=== PATIENT | male | born 1950 | race Caucasian/White ===

== ENCOUNTER 2016-12-21 11:20 | Observation (INO) | payer MEDICARE, OTHER ==
[2016-12-21] VITALS (14 sets, daily range): BP systolic 103–135; BP diastolic 67–87; PULSE 65–150; RESP 18; TEMP 97.1–98.4; O2SAT 96–99
[~2016-12-21] VITALS: Ht 182.9 cm; Wt 120.0 kg
[2016-12-21] MEDS ORDERED: SODIUM CHLORIDE 0.9% FLUSH 10 ML FLUSH IVF PRN (11:30)
[2016-12-21] MEDS ORDERED: DILTIAZEM HCL 25 MG/5 ML VIAL IV ONE (11:30)
--- NOTE | 2016-12-21 11:49 | RADRPT ---
EXAM DATE/TIME: 12/21/2016 11:39 [place] COMPARISON: No previous studies available for comparison. INDICATIONS : Palpitations MEDICAL HISTORY : None. SURGICAL HISTORY : None. ENCOUNTER: Initial ACUITY: 1 day PAIN SCORE: 0/10 LOCATION: Bilateral chest FINDINGS: A single view of the chest demonstrates the lungs to be symmetrically aerated without evidence of mas s, infiltrate or effusion. The cardiomediastinal contours are unremarkable. Osseous structures are intact. CONCLUSION: No acute disease. Joaquim Landry MD on December 21, 2016 at 11:46 Board Certified Radiologist. This report was verified electronically.
[2016-12-21 11:51] LABS: AUTOMATED NEUTROPHIL # 3.6 TH/MM3 (1.8-7.7); BASOPHIL % 0.8 % (0.0-2.0); EOSINOPHIL # 0.2 TH/MM3 (0-0.4); EOSINOPHIL % 3.6 % (0.0-4.0); HEMATOCRIT 47.8 % (39.0-51.0); HEMO FLAGS DIFF FINAL; LYMPH % 22.7 % (9.0-44.0); LYMPHOCYTE # 1.3 TH/MM3 (1.0-4.8); MEAN CELL VOLUME 80.9 FL (80.0-100.0); MEAN CORPUSCULAR HEMOGLOBIN 26.9 PG (27.0-34.0); MEAN CORPUSCULAR HGB CONC 33.2 % (32.0-36.0); MONO % 9.8 % (0.0-8.0); NEUT % 63.1 % (16.0-70.0); PLATELET COUNT 246 TH/MM3 (150-450); RED BLOOD COUNT 5.91 MIL/MM3 (4.50-5.90); WHITE BLOOD COUNT 5.7 TH/MM3 (4.0-11.0)
[2016-12-21] MEDS ORDERED: DILTIAZEM INJ 125 MG in SODIUM CHLORIDE 0.9% INJ 100 ML IV SCH (12:00)
[2016-12-21 12:01] LABS: APTT (PATIENT) 28.7 SEC (24.3-30.1); PROTHROMBIN TIME - PATIENT 11.2 SEC (9.8-11.6)
[2016-12-21 12:08] LABS: ANION GAP 12 MEQ/L (5-15); AST (GOT) 23 U/L (15-37); BICARBONATE 26.6 MEQ/L (21.0-32.0); BLOOD UREA NITROGEN 17 MG/DL (7-18); CHLORIDE 94 MEQ/L (98-107); GLOMERULAR FILTRATION RATE 53 ML/MIN (>89); MAGNESIUM 1.7 MG/DL (1.5-2.5); POTASSIUM 3.8 MEQ/L (3.5-5.1); SODIUM (NA) 133 MEQ/L (136-145)
[2016-12-21 12:13] LABS: ALKALINE PHOSPHATASE 91 U/L (45-117); ALT (GPT) 12 U/L (12-78); TOTAL BILIRUBIN ADULT 0.3 MG/DL (0.2-1.0)
--- NOTE | 2016-12-21 12:26 | PD ---
HPI Chief Complaint: tachycardia Time Seen by Provider: 11:24 Travel History International Travel<30 days: No Contact w/Intl Traveler<30days: No Traveled to known affect area: No History of Present Illness HPI 66-year-old male presents with elevated heart rate when he went for a primary care check up this morning. He was asymptomatic when they noticed his heart rate was fast. He states he's never had this before. He states his last checkup about a month ago his heart rate was normal. 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 He denies taking any mftw-xby-zhrxtnc blood thinner medications. Quality is irregular. Severity is 150s. PFSH Past Medical History Medical History: Denies Significant Hx Diminished Hearing: No Tetanus Vaccination: Unknown ?: Not Past Surgical History Surgical History: No Previous Surgery Social History Alcohol Use: No Tobacco Use: No Substance Use: No Allergies-Medications (Allergen,Severity, Reaction): Coded Allergies: No Known Allergies (Unverified , 12/21/16) Reported Meds & Prescriptions Reported Meds & Active Scripts Active No Active Prescriptions or Reported Medications Review of Systems Except as stated in HPI: all other systems reviewed are Neg Physical Exam Narrative GENERAL: Well-nourished, well-developed patient. SKIN: Warm and dry. HEAD: Normocephalic and atraumatic. EYES: No injection or drainage. ENT: No nasal drainage noted. NECK: Supple, trachea midline. CARDIOVASCULAR: irregular rate and rhythm RESPIRATORY: Breath sounds equal bilaterally at apices. No accessory muscle use. GASTROINTESTINAL: Abdomen soft, non-tender, nondistended. NEUROLOGICAL: Awake and alert. Motor and sensory grossly within normal limits. Normal speech. Data Data Last Documented VS Vital Signs Date Time Temp Pulse Resp B/P Pulse Ox O2 Delivery O2 Flow Rate FiO2 12/21/16 11:51 84 12/21/16 11:29 99 Room Air 12/21/16 11:22 98.2 18 135/87 Orders Electrocardiogram (12/21/16 ) Ecg Monitoring (12/21/16 11:24) Blood Pressure (12/21/16 11:24) Iv Access Insert/Monitor (12/21/16 11:24) Oximetry (12/21/16 11:24) Vital Signs (12/21/16 11:24) Sodium Chloride 0.9% Flush (Ns Flush) (12/21/16 11:30) Magnesium (Mg) (12/21/16 11:24) Phosphorus (Po4) (12/21/16 11:24) Complete Blood Count With Diff (12/21/16 11:24) Comprehensive Metabolic Panel (12/21/16 11:24) Ckmb (Isoenzyme) Profile (12/21/16 11:24) Troponin I (12/21/16 11:24) Act Partial Throm Time (Ptt) (12/21/16 11:24) Prothrombin Time / Inr (Pt) (12/21/16 11:24) Chest, Single Ap (12/21/16 ) Diltiazem Inj (Cardizem Inj) (12/21/16 11:30) Diltiazem Inj (Cardizem Inj) (12/21/16 12:00) Admit To Inpatient (12/21/16 ) Code Status (12/21/16 12:58) Vital Signs (Adult) Q4H (12/21/16 12:58) Activity Oob With Assistance (12/21/16 12:58) Oil Recovery Unit Operator / Telemetry .CONTINUOUS (12/21/16 12:58) Diet Heart Healthy (12/21/16 Lunch) Sodium Chloride 0.9% Flush (Ns Flush) (12/21/16 13:00) Sodium Chloride 0.9% Flush (Ns Flush) (12/21/16 21:00) Acetaminophen (Tylenol) (12/21/16 13:00) Ondansetron Inj (Zofran Inj) (12/21/16 13:00) Magnesium Hydroxide Liq (Milk Of Magnesi (12/21/16 13:00) Temazepam (Restoril) (12/21/16 21:00) Basic Metabolic Panel (Bmp) (12/22/16 06:00) Complete Blood Count With Diff (12/22/16 06:00) Pt Request For Service (12/21/16 12:58) Scd Bilateral/Knee High GERRY.BID (12/21/16 12:58) Naloxone Inj (Narcan Inj) (12/21/16 13:00) Inpatient Certification (12/21/16 ) Thyroid Stimulating Hormone (12/21/16 13:00) Free Thyroxine (T4) (12/21/16 13:00) Echo 2d Comp W/Dopp(Routine) (12/21/16 ) Aspirin (Aspirin) (12/21/16 13:15) Magnesium (Mg) (12/21/16 13:01) Diltiazem (Cardizem) (12/21/16 18:00) Admit Order (Ed Use Only) (12/21/16 13:04) Labs Laboratory Tests Test 12/21/16 11:35 White Blood Count 5.7 TH/MM3 Red Blood Count 5.91 MIL/MM3 Hemoglobin 15.9 GM/DL Hematocrit 47.8 % Mean Corpuscular Volume 80.9 FL Mean Corpuscular Hemoglobin 26.9 PG Mean Corpuscular Hemoglobin 33.2 % Concent Red Cell Distribution Width 15.0 % Platelet Count 246 TH/MM3 Mean Platelet Volume 9.0 FL Neutrophils (%) (Auto) 63.1 % Lymphocytes (%) (Auto) 22.7 % Monocytes (%) (Auto) 9.8 % Eosinophils (%) (Auto) 3.6 % Basophils (%) (Auto) 0.8 % Neutrophils # (Auto) 3.6 TH/MM3 Lymphocytes # (Auto) 1.3 TH/MM3 Monocytes # (Auto) 0.6 TH/MM3 Eosinophils # (Auto) 0.2 TH/MM3 Basophils # (Auto) 0.0 TH/MM3 CBC Comment DIFF FINAL Differential Comment Prothrombin Time 11.2 SEC Prothromb Time International 1.0 RATIO Ratio Activated Partial 28.7 SEC Thromboplast Time Sodium Level 133 MEQ/L Potassium Level 3.8 MEQ/L Chloride Level 94 MEQ/L Carbon Dioxide Level 26.6 MEQ/L Anion Gap 12 MEQ/L Blood Urea Nitrogen 17 MG/DL Creatinine 1.35 MG/DL Estimat Glomerular Filtration 53 ML/MIN Rate Random Glucose 130 MG/DL Calcium Level 8.5 MG/DL Phosphorus Level 3.0 MG/DL Magnesium Level 1.7 MG/DL Total Bilirubin 0.3 MG/DL Aspartate Amino Transf 23 U/L (AST/SGOT) Alanine Aminotransferase 12 U/L (ALT/SGPT) Alkaline Phosphatase 91 U/L Total Creatine Kinase 34 U/L Troponin I LESS THAN 0.02 NG/ML Total Protein 6.8 GM/DL Albumin 2.2 GM/DL MDM Medical Decision Making Medical Screen Exam Complete: Yes Emergency Medical Condition: Yes Medical Record Reviewed: Yes (past history confirmed) Interpretation(s) EKG is a flutter at 150 without STEMI criteria, patient without chest pain CBC & BMP Diagram 12/21/16 11:35 Last 24 hours Impressions Chest X-Ray 12/21/16 0000 Signed Impressions: Service Date/Time: December 11:39 - CONCLUSION: No acute disease. Joaquim Landry MD Differential Diagnosis Atrial fibrillation, atrial flutter, SVT, electrolyte abnormality Narrative Course Will check blood work, chest x-ray, EKG and reevaluate. EKG shows a flutter in the 150s. Patient will be given 15 mg of Cardizem and reevaluated Cardizem has decreased heart rate to the 80s but is starting to go back up so we 'll order Cardizem drip at 5 mg per hour and titrate patient updated and agrees to admit Critical Care Narrative Aggregate critical care time was 35 minutes. Time to perform other separately billable procedures was not included in the critical care time. My time did not include minutes spent treating any other patients simultaneously or on activities that did not directly contribute to the patient's treatment. The services I provided to this patient were to treat and/or prevent clinically significant deterioration that could result in: Dysrhythmia, shock I provided critical care services requiring my management, as noted below: Chart data review, documentation time, medication orders and management, vital sign assessments/reviewing monitor data, ordering and reviewing lab tests, ordering and interpreting/reviewing x-rays and diagnostic studies, care of the patient and discussion of the patient with the admitting physicians. Physician Communication Physician Communication dr arguello agrees to admit Diagnosis Primary Impression: Atrial flutter with rapid ventricular response Admitting Information Admitting Physician Requests: Admit Scripts No Active Prescriptions or Reported Meds Dang Perdue MD December 21, 2016 12:26
[2016-12-21 12:27] LABS: CREATINE KINASE 34 U/L (39-308)
[2016-12-21] MEDS ORDERED: MAGNESIUM HYDROXIDE SUSP 30 ML CUP PO PRN (13:00)
[2016-12-21] MEDS ORDERED: ONDANSETRON HCL 4 MG/2 ML VIAL IVP PRN (13:00)
[2016-12-21] MEDS ORDERED: ACETAMINOPHEN 325 MG TAB PO PRN (13:00)
[2016-12-21] MEDS ORDERED: SODIUM CHLORIDE 0.9% FLUSH 10 ML FLUSH IV FLUSH PRN (13:00)
[2016-12-21] MEDS ORDERED: NALOXONE HCL 0.4 MG/ML AMP IV PRN (13:00)
[2016-12-21] MEDS: ASPIRIN 325 MG TAB PO SCH (13:44)
--- NOTE | 2016-12-21 14:12 | HHI.HP ---
HPI Service [facility] Hospitalists Primary Care Physician Leah Galdamez MD Admission Diagnosis Atrial flutter with RVR Chief Complaint: A. flutter Travel History International Travel<30 Days: No Contact w/Intl Traveler <30 Da: No Traveled to Known Affected Are: No History of Present Illness Mr. Kauffman 66 y/o male with hyperlipidemia and CKD, stage 2 who was sent to the ED from his PCP's office for A. flutter with RVR. Pt presented today for annual appointment for physical examination and was found to have an elevated HR in the 150's. EKG at his PCP office noted A. flutter with RVR. Pt was sent to the ED for further evaluation and treatment. He is asymptomatic. Denies any palpitations, chest pain, dizziness, or weakness. He denies any hx of heart issues previously. He does not have a vapor coater. He denies any recent illnesses or taking any [id number] medications. EKG in the ED noted A. flutter with rate in the 150s. Patient was given 15 mg of Cardizem which initially decreased the heart rate into the 80s but it then starting to go back up so he was started on Cardizem drip at 5 mg/hr and asked to admit the pt for further workup and adjustments. Review of Systems Constitutional: DENIES: Fever, Chills Eyes: DENIES: Vision loss Ears, nose, mouth, throat: DENIES: Hearing loss Respiratory: DENIES: Cough, Shortness of breath Cardiovascular: DENIES: Chest pain, Palpitations, Dyspnea on Exertion, Lower Extremity Edema Gastrointestinal: DENIES: Nausea, Vomiting Genitourinary: DENIES: Hematuria Integumentary: DENIES: Rash Neurologic: DENIES: Headache Psychiatric: DENIES: Confusion Past Family Social History Past Medical History Hyperlipidemia CKD, stage 2 Past Surgical History Tonsillectomy Reported Medications No home meds Allergies: Coded Allergies: No Known Allergies (Unverified , 12/21/16) Family History Father with hx of colon cancer Two half brothers with CAD/MIs in their 60-70's Social History (+)Alcohol use, 2 beers/1 glass of wine per week Denies any tobacco or illicit drug use Pt is Works part-time at [employer] Physical Exam Vital Signs Vital Signs Date Time Temp Pulse Resp B/P Pulse Ox O2 Delivery O2 Flow Rate FiO2 5/11/17 13:45 150 18 103/68 Room Air 12/21/16 11:51 84 12/21/16 11:29 99 Room Air 12/21/16 11:26 146 12/21/16 11:22 98.2 146 18 135/87 98 Physical Exam GENERAL: This is a well-nourished, well-developed patient, in no apparent distress. HEENT: Atraumatic. Normocephalic. No temporal or scalp tenderness. No scleral icterus. Airway patent. NECK: Trachea midline, supple, nontender. CARDIO: Tachy, irregular. RESP: CTA bilaterally. No wheezes, rales, or rhonchi. ABD: +BS, soft, non-tender, nondistended. EXT: Extremities without clubbing, cyanosis, or edema. NEURO: Awake and alert. Motor and sensory grossly within normal limits. Normal speech. Laboratory Laboratory Tests Test 12/21/16 11:35 White Blood Count 5.7 Red Blood Count 5.91 Hemoglobin 15.9 Hematocrit 47.8 Mean Corpuscular Volume 80.9 Mean Corpuscular Hemoglobin 26.9 Mean Corpuscular Hemoglobin 33.2 Concent Red Cell Distribution Width 15.0 Platelet Count 246 Mean Platelet Volume 9.0 Neutrophils (%) (Auto) 63.1 Lymphocytes (%) (Auto) 22.7 Monocytes (%) (Auto) 9.8 Eosinophils (%) (Auto) 3.6 Basophils (%) (Auto) 0.8 Neutrophils # (Auto) 3.6 Lymphocytes # (Auto) 1.3 Monocytes # (Auto) 0.6 Eosinophils # (Auto) 0.2 Basophils # (Auto) 0.0 CBC Comment DIFF FINAL Differential Comment Prothrombin Time 11.2 Prothromb Time International 1.0 Ratio Activated Partial 28.7 Thromboplast Time Sodium Level 133 Potassium Level 3.8 Chloride Level 94 Carbon Dioxide Level 26.6 Anion Gap 12 Blood Urea Nitrogen 17 Creatinine 1.35 Estimat Glomerular Filtration 53 Rate Random Glucose 130 Calcium Level 8.5 Phosphorus Level 3.0 Magnesium Level 1.7 Total Bilirubin 0.3 Aspartate Amino Transf 23 (AST/SGOT) Alanine Aminotransferase 12 (ALT/SGPT) Alkaline Phosphatase 91 Total Creatine Kinase 34 Troponin I LESS THAN 0.02 Total Protein 6.8 Albumin 2.2 Result Diagram: 12/21/16 1135 12/21/16 1135 Imaging Last Impressions Chest X-Ray 12/21/16 0000 Signed Impressions: Service Date/Time: December 11:39 - CONCLUSION: No acute disease. Joaquim Landry MD Septic Shock Reassessment Heart: Irregular Lungs: Clear Skin: Warm Assessment and Plan Problem List: (1) Atrial flutter with rapid ventricular response Status: Acute Plan: - pt admitted with new onset of A. flutter with RVR found on exam at his PCP office today. - Unclear how long this has been going on as the pt is asymptomatic. - Initial EKG in the ED showed A. flutter with rate in the 150s. - Patient was given 15mg of Cardizem and heart rate did decrease to the 80s but started trending back up so he was started on Cardizem drip at 5mg/hr - Start Cardizem 30mg po Q6H and try to wean off Cardizem gtt. - Telemetry - 2D echo - Check TSH/Free T4 - Supportive care - DVT prophylaxis with SCDs Assessment and Plan Patient examined. Assessment and plan formulated with Kay Aguirre PA-C. I agree with the above. Physician Certification 2 Midnight Certification Type: Admission for Inpatient Services Order for Inpatient Services The services are ordered in accordance with Medicare regulations or non- Medicare payer requirements, as applicable. In the case of services not specified as inpatient-only, they are appropriately provided as inpatient services in accordance with the 2-midnight benchmark. Estimated LOS (days): 2 2 days is the estimated time the patient will need to remain in the hospital, assuming treatment plan goals are met and no additional complications. Post-Hospital Plan: Home Kay Aguirre December 21, 2016 14:12 Daryl Carias DO December 23, 2016 10:06
--- NOTE | 2016-12-21 15:18 | EKG ---
Date Performed: 12/21/2016 Time Performed: 11:21:50 PTAGE: 66 years EKG: ATRIAL FLUTTER/TACHYCARDIA WITH RAPID VENTRICULAR RESPONSE INDETERMINATE AXIS NO PREVIOUS TRACING DOCTOR: Gerald Rose Interpretating Date/Time 12/21/2016 15:18:05
[2016-12-21] MEDS: DILTIAZEM HCL 30 MG TAB PO SCH (18:13)
[2016-12-21] MEDS ORDERED: TEMAZEPAM 15 MG CAP PO PRN (21:00)
[2016-12-21] MEDS: SODIUM CHLORIDE 0.9% FLUSH 10 ML FLUSH IV FLUSH SCH (21:00)
[2016-12-21 23:28] LABS: FREE T4 1.34 NG/DL (0.76-1.46)
[2016-12-22] VITALS (19 sets, daily range): BP systolic 116–134; BP diastolic 73–82; PULSE 56–100; RESP 18; TEMP 97.9–98.7; O2SAT 95–100
[2016-12-22] MEDS: DILTIAZEM HCL 30 MG TAB PO SCH ×2 (00:59→06:01)
[2016-12-22 06:55] LABS: AUTOMATED NEUTROPHIL # 3.8 TH/MM3 (1.8-7.7); BASOPHIL # 0.1 TH/MM3 (0-0.2); EOSINOPHIL # 0.3 TH/MM3 (0-0.4); EOSINOPHIL % 4.4 % (0.0-4.0); HEMATOCRIT 44.7 % (39.0-51.0); HEMO FLAGS DIFF FINAL; LYMPH % 22.8 % (9.0-44.0); LYMPHOCYTE # 1.4 TH/MM3 (1.0-4.8); MEAN CELL VOLUME 80.6 FL (80.0-100.0); MEAN CORPUSCULAR HEMOGLOBIN 26.5 PG (27.0-34.0); MEAN CORPUSCULAR HGB CONC 32.9 % (32.0-36.0); MONO % 9.8 % (0.0-8.0); PLATELET COUNT 221 TH/MM3 (150-450); RED BLOOD COUNT 5.54 MIL/MM3 (4.50-5.90); RED CELL DISTRIBUTION WIDTH 14.9 % (11.6-17.2); WHITE BLOOD COUNT 6.1 TH/MM3 (4.0-11.0)
[2016-12-22 07:24] LABS: BICARBONATE 27.4 MEQ/L (21.0-32.0); POTASSIUM 4.1 MEQ/L (3.5-5.1)
[2016-12-22] MEDS: SODIUM CHLORIDE 0.9% FLUSH 10 ML FLUSH IV FLUSH SCH (08:42)
[2016-12-22] MEDS: ASPIRIN 325 MG TAB PO SCH (08:42)
--- NOTE | 2016-12-22 10:02 | EC ---
Study Study Date:12/21/2016 STUDY CONCLUSIONS SUMMARY - Left ventricle: The cavity size was normal. Wall thickness was normal. Systolic function was moderately reduced. The estimated ejection fraction was in the range of 35% to 40%. Wall motion was normal; there were no regional wall motion abnormalities. - Aortic valve: Valve area: 2.32cm^2 (Vmax). If LV function is below 40, please consider prescribing an ACEI or ARB or document rationale for non-use. PROCEDURE DATA STUDY STATUS: Elective. Procedure: Transthoracic echocardiography. Image quality was poor. Scanning was performed from the parasternal, apical, and subcostal acoustic windows. Study completion: The patient tolerated the procedure well. Transthoracic echocardiography. M-mode, complete 2D, complete spectral Doppler, and color Doppler. Height: Height: 72in. Weight: Weight: 263.5lb. Body mass index: BMI: 35.8kg/m^2. Body surface area: BSA: 2.4m^2. Patient status: Inpatient. CARDIAC ANATOMY LEFT VENTRICLE: The cavity size was normal. Wall thickness was normal. Systolic function was moderately reduced. The estimated ejection fraction was in the range of 35% to 40%. Wall motion was normal; there were no regional wall motion abnormalities. AORTIC VALVE: Trileaflet; normal thickness leaflets. Doppler: Transvalvular velocity was within the normal range. There was no stenosis. No regurgitation. Valve area: 2.32cm^2 (Vmax). Indexed valve area: 0.97cm^2/m^2 (Vmax). AORTA: Aortic root: The aortic root was normal in size. MITRAL VALVE: Structurally normal valve. Doppler: Transvalvular velocity was within the normal range. There was no evidence for stenosis. No regurgitation. LEFT ATRIUM: The atrium was at the upper limits of normal in size. RIGHT VENTRICLE: The cavity size was normal. Wall thickness was normal. PULMONIC VALVE: Doppler: Transvalvular velocity was within the normal range. There was no evidence for stenosis. No regurgitation. TRICUSPID VALVE: Structurally normal valve. Doppler: Transvalvular velocity was within the normal range. No regurgitation. PULMONARY ARTERY: The main pulmonary artery was normal-sized. Systolic pressure was within the normal range. RIGHT ATRIUM: The atrium was normal in size. PERICARDIUM: There was no pericardial effusion. SYSTEMIC VEINS: Inferior vena cava: The vessel was normal in size. Patient weight: 263.5lb _Ejection fraction:_ 65-75% _Fractional shortening:_ 32% up to 5Kg 5-11.5Kg 11.6-22.9Kg 23-45Kg 45-57Kg Aortic Root 7-13 <17 13-22 17-27 17-27 LA diam 6-13 <23 24-38 33-47 37-40 RVID 10-17 7-15 7-15 7-18 8-17 LVIDd 12-22 <32 24-38 33-47 37-40 LVPW 2-4 3-6 5-7 6-8 7-8 IVS 2-4 3-6 5-7 6-8 7-8 BASIC MEASUREMENTS ADULT NORMAL Left ventricle LV internal dimension, ED, chordal 47.1 mm 43-52 level, PLAX LV internal dimension, ES, chordal *40.3 mm 23-38 level, PLAX Fractional shortening, chordal level, *14 % >29 PLAX LV posterior wall thickness, ED 12.1 mm IVS/LVPW ratio, ED 1 <1.3 Ventricular septum Septal thickness, ED 12.1 mm Aortic valve Leaflet separation 21 mm 15-26 BASIC MEASUREMENTS ADULT NORMAL Aortic valve Leaflet separation 21 mm 15-26 Aorta Root diameter, ED 32 mm 20-37 Left atrium Anterior-posterior dimension, ES 39 mm 19-40 Anterior-posterior dimension index, ES 1.63 cm/m^2 <2.2 LA/aortic root ratio 1.22 DOPPLER MEASUREMENTS ADULT NORMAL Main pulmonary artery Pressure, S 15 mm Hg =30 Aortic valve Peak velocity, S 102 cm/s Valve area, Vmax 2.32 cm^2 Valve area index, Vmax 0.97 cm^2/m^2 Tricuspid valve Regurgitant peak velocity 135 cm/s Peak RV-RA gradient, S 7 mm Hg Maximal regurgitant velocity 135 cm/s Systemic veins Estimated CVP 10 mm Hg Right ventricle RV pressure, S 17 mm Hg <30 Pulmonic valve Peak velocity, S 74.7 cm/s LEGEND: Mean values are shown as u=mean value. Asterisk (*) luque values outside specified normal range. Prepared and signed by Yandel Rod [id number]
[2016-12-22] MEDS ORDERED: DILTIAZEM-CD 120 MG CAP ER PO SCH (12:00)
[2016-12-22] MEDS ORDERED: CARD120C4 PO (16:27)
[2016-12-22] MEDS ORDERED: ASPI325T PO (16:27)
--- NOTE | 2016-12-22 16:29 | HHI.DCPOC ---
Discharge Care Plan Diagnosis: (1) Atrial flutter with rapid ventricular response Goals to Promote Your Health * To prevent worsening of your condition and complications * To maintain your health at the optimal level Directions to Meet Your Goals Take your medications as prescribed Follow your dietary instruction Follow activity as directed Keep your appointments as scheduled Take your immunizations and boosters as scheduled If your symptoms worsen call your PCP, if no PCP go to Urgent Care Center or Emergency Room Smoking is Dangerous to Your Health. Avoid second hand smoke Call the 24-hour hour crisis hotline for domestic abuse at Kay Aguirre December 22, 2016 16:29 Daryl Carias DO December 23, 2016 10:07
--- NOTE | 2016-12-22 16:36 | HHI.PR ---
Subjective Remarks HR stable, NSR on telemetry No complaints. Pt is anxious for discharge Objective Vitals Vital Signs Date Time Temp Pulse Resp B/P Pulse Ox O2 Delivery O2 Flow Rate FiO2 12/22/16 16:00 62 12/22/16 15:00 98.4 63 18 116/73 97 12/22/16 15:00 69 12/22/16 14:00 70 12/22/16 13:00 66 12/22/16 12:00 60 12/22/16 11:00 98.7 66 18 128/79 100 12/22/16 11:00 61 12/22/16 10:00 68 12/22/16 09:00 66 12/22/16 08:00 100 12/22/16 07:00 98.2 56 18 134/79 95 12/22/16 06:34 82 12/22/16 05:05 82 12/22/16 04:01 97.9 66 117/82 96 12/22/16 04:00 74 12/22/16 03:00 75 12/22/16 02:00 66 12/22/16 01:00 70 12/22/16 00:00 66 12/21/16 23:00 97.5 76 124/71 96 12/21/16 23:00 68 12/21/16 22:00 76 12/21/16 21:00 74 12/21/16 20:00 78 12/21/16 19:00 75 12/21/16 19:00 97.7 76 112/78 96 12/21/16 19:00 77 12/21/16 18:00 75 12/21/16 17:00 65 12/21/16 12/21/16 12/22/16 15:00 23:00 07:00 Intake Total 200 ml 240 ml Output Total 500 ml Balance 200 ml -260 ml Intake Oral 200 ml 240 ml Output Urine Total 500 ml Result Diagram: 12/22/1661912/22/16619 Other Results Laboratory Tests Test 12/21/16 12/22/16 11:35 06:20 White Blood Count 5.7 TH/MM3 6.1 TH/MM3 Red Blood Count 5.91 MIL/MM3 5.54 MIL/MM3 Hemoglobin 15.9 GM/DL 14.7 GM/DL Hematocrit 47.8 % 44.7 % Mean Corpuscular Volume 80.9 FL 80.6 FL Mean Corpuscular Hemoglobin 26.9 PG 26.5 PG Mean Corpuscular Hemoglobin 33.2 % 32.9 % Concent Red Cell Distribution Width 15.0 % 14.9 % Platelet Count 246 TH/MM3 221 TH/MM3 Mean Platelet Volume 9.0 FL 8.9 FL Neutrophils (%) (Auto) 63.1 % 62.0 % Lymphocytes (%) (Auto) 22.7 % 22.8 % Monocytes (%) (Auto) 9.8 % 9.8 % Eosinophils (%) (Auto) 3.6 % 4.4 % Basophils (%) (Auto) 0.8 % 1.0 % Neutrophils # (Auto) 3.6 TH/MM3 3.8 TH/MM3 Lymphocytes # (Auto) 1.3 TH/MM3 1.4 TH/MM3 Monocytes # (Auto) 0.6 TH/MM3 0.6 TH/MM3 Eosinophils # (Auto) 0.2 TH/MM3 0.3 TH/MM3 Basophils # (Auto) 0.0 TH/MM3 0.1 TH/MM3 CBC Comment DIFF FINAL DIFF FINAL Differential Comment Prothrombin Time 11.2 SEC Prothromb Time International 1.0 RATIO Ratio Activated Partial 28.7 SEC Thromboplast Time Sodium Level 133 MEQ/L 140 MEQ/L Potassium Level 3.8 MEQ/L 4.1 MEQ/L Chloride Level 94 MEQ/L 104 MEQ/L Carbon Dioxide Level 26.6 MEQ/L 27.4 MEQ/L Anion Gap 12 MEQ/L 9 MEQ/L Blood Urea Nitrogen 17 MG/DL 15 MG/DL Creatinine 1.35 MG/DL 1.11 MG/DL Estimat Glomerular Filtration 53 ML/MIN 66 ML/MIN Rate Random Glucose 130 MG/DL 85 MG/DL Calcium Level 8.5 MG/DL 8.9 MG/DL Phosphorus Level 3.0 MG/DL Magnesium Level 1.7 MG/DL Total Bilirubin 0.3 MG/DL Aspartate Amino Transf 23 U/L (AST/SGOT) Alanine Aminotransferase 12 U/L (ALT/SGPT) Alkaline Phosphatase 91 U/L Total Creatine Kinase 34 U/L Troponin I LESS THAN 0.02 NG/ML Total Protein 6.8 GM/DL Albumin 2.2 GM/DL Free Thyroxine 1.34 NG/DL Thyroid Stimulating Hormone 1.010 uIU/ML 3rd Gen Imaging Last Impressions Chest X-Ray 12/21/16 0000 Signed Impressions: Service Date/Time: December 11:39 - CONCLUSION: No acute disease. Joaquim Landry MD Objective Remarks General: NAD, AAox3 Chest: CTA Cardiac: Irregular, HR controlled Abd: +SB, soft ND/NT Ext: No edema A/P Problem List: (1) Atrial flutter with rapid ventricular response Status: Acute Plan: - Pt admitted with new onset of A. flutter with RVR found on exam at his PCP office today. - Unclear how long this has been going on as the pt is asymptomatic. - Initial EKG in the ED showed A. flutter with rate in the 150s. - Patient was given 15mg of Cardizem and heart rate did decrease to the 80s but started trending back up so he was started on Cardizem drip at 5mg/hr - Pts HR was controlled on Cardizem 30mg po Q6H and he was weaned off Cardizem gtt. - Pt converted to Cardizem CD 120mg po daily and NSR on telemetry. - [id number] score of 1, low to moderate risk - 2D echo --> Systolic function moderately reduced to 35-40%. Pt will likely need a repeat echo as an outpt. - TSH/Free T4 stable - Supportive care - Pt planned for discharge home today on Cardizem 120mg po daily and Eliquis 5mg po BID - He will need to followup with his PCP, Dr. Galdamez in 1 week, - He will need to be seen by [facility] in 2 weeks. Assessment and Plan Patient examined. Assessment and plan formulated with Kay Aguirre PA-C. I agree with the above. Kay Aguirre December 22, 2016 16:36 Daryl Carias DO December 23, 2016 10:07
[2016-12-22] MEDS ORDERED: APIX5TAB PO (16:56)
[2016-12-22] MEDS ORDERED: APIXABAN 5 MG TABLET PO ONE (17:15)
== END 2016-12-22 18:03 | disposition home or self-care (01) ==
LOC: NEPE 11:20 → INTOOBSV 13:06 → NEDA 13:06 → HCIN 16:10
PROVIDERS: ADMIT Hospitalist; ATTEND Hospitalist
DX: I48.92 Unspecified atrial flutter (principal); N18.2 Chronic kidney disease, stage 2 (mild); Z82.49 Family history of ischemic heart disease and other diseases of the circulatory system
CPT/HCPCS: 71010; 80048; 80053; 82550; 83735; 84100; 84439; 84443; 84484; 85025; 85610; 85730; 93005; 93306; 96365; 96376; 97163; 99291; G0378; G8987; G8988

== ENCOUNTER 2016-12-27 16:40 | Emergency (ER) | payer MEDICARE ==
[~2016-12-27] VITALS: Ht 182.9 cm; Wt 120.0 kg
[~2016-12-27 16:40] MED LIST: APIX5TAB PO; CARD120C4 PO
[2016-12-27 16:50] VITALS: BP 118/76; PULSE 142; RESP 20; TEMP 98.2; O2SAT 99
[2016-12-27] MEDS ORDERED: DILTIAZEM INJ 125 MG in SODIUM CHLORIDE 0.9% INJ 100 ML IV SCH (17:00)
[2016-12-27] MEDS ORDERED: DILTIAZEM HCL 25 MG/5 ML VIAL IV PUSH ONE (17:00)
[2016-12-27] MEDS ORDERED: SODIUM CHLORIDE 0.9% FLUSH 10 ML FLUSH IVF PRN (17:00)
--- NOTE | 2016-12-27 17:02 | PD ---
HPI Chief Complaint: Cardiac Complaint Time Seen by Provider: 16:49 Travel History International Travel<30 days: No Contact w/Intl Traveler<30days: No Traveled to known affect area: No History of Present Illness HPI PATIENT HAD INADVERTENT DIAGNOSIS OF ATRIAL FLUTTER/FIB WITH PCP ABOUT 1 WEEK AGO, WAS ADMITTED FOR RATE CONTROL AT [facility], 4 DAYS AGO STARTED ON CARDIZEM AND ELIQUIS OUTPATIENT...TODAY WAS AT OFFICE FOR FOLLOWUP HAS NO COMPLAINTS AT ALL WAS FOUND TO BE [facility] AT [facility] [facility] Past Medical History Hx Anticoagulant Therapy: Yes Atrial Fibrillation: Yes Cardiovascular Problems: Yes Diminished Hearing: No Past Surgical History Surgical History: No Previous Surgery Social History Alcohol Use: No Tobacco Use: No Substance Use: No Allergies-Medications (Allergen,Severity, Reaction): Coded Allergies: No Known Allergies (Unverified , 12/27/16) Reported Meds & Prescriptions Reported Meds & Active Scripts Active Eliquis (Apixaban) 5 Mg Tab 5 Mg PO BID Cardizem CD 24 HR (Diltiazem CD 24 HR) 120 Mg Caper 120 Mg PO DAILY Review of Systems Cardiovascular: Positive: Palpitations Physical Exam Narrative GENERAL: SKIN: Warm and dry. HEAD: Atraumatic. Normocephalic. EYES: Pupils equal and round. No scleral icterus. No injection or drainage. ENT: No nasal bleeding or discharge. Mucous membranes pink and moist. NECK: Trachea midline. No JVD. CARDIOVASCULAR: IRREGULAR, TACHYCARDIC, RESPIRATORY: No accessory muscle use. Clear to auscultation. Breath sounds equal bilaterally. GASTROINTESTINAL: Abdomen soft, non-tender, nondistended. Hepatic and splenic margins not palpable. MUSCULOSKELETAL: Extremities without clubbing, cyanosis, or edema. No obvious deformities. NEUROLOGICAL: Awake and alert. No obvious cranial nerve deficits. Motor grossly within normal limits. Five out of 5 muscle strength in the arms and legs. Normal speech. PSYCHIATRIC: Appropriate mood and affect; insight and judgment normal. Data Data Last Documented VS Vital Signs Date Time Temp Pulse Resp B/P Pulse Ox O2 Delivery O2 Flow Rate FiO2 12/27/16 17:27 87 20 114/67 100 Nasal Cannula 2 12/27/16 16:50 98.2 Orders Electrocardiogram (12/27/16 ) Ecg Monitoring (12/27/16 16:57) Blood Pressure (12/27/16 16:57) Iv Access Insert/Monitor (12/27/16 16:57) Oximetry (12/27/16 16:57) Vital Signs (12/27/16 16:57) Diltiazem Inj (Cardizem Inj) (12/27/16 17:00) Diltiazem Inj (Cardizem Inj) (12/27/16 17:00) Sodium Chloride 0.9% Flush (Ns Flush) (12/27/16 17:00) Diltiazem Inj (Cardizem Inj) (12/27/16 17:30) Electrocardiogram (12/27/16 16:57) B-Type Natriuretic Peptide (12/27/16 16:57) Ckmb (Isoenzyme) Profile (12/27/16 16:57) Complete Blood Count With Diff (12/27/16 16:57) Comprehensive Metabolic Panel (12/27/16 16:57) Magnesium (Mg) (12/27/16 16:57) Prothrombin Time / Inr (Pt) (12/27/16 16:57) Act Partial Throm Time (Ptt) (12/27/16 16:57) Troponin I (12/27/16 16:57) Chest, Single Ap (12/27/16 16:57) CKMB (12/27/16 17:20) CKMB% (12/27/16 17:20) Labs Laboratory Tests Test 12/27/16 17:20 White Blood Count 7.4 TH/MM3 Red Blood Count 5.79 MIL/MM3 Hemoglobin 15.5 GM/DL Hematocrit 46.1 % Mean Corpuscular Volume 79.6 FL Mean Corpuscular Hemoglobin 26.7 PG Mean Corpuscular Hemoglobin 33.6 % Concent Red Cell Distribution Width 14.6 % Platelet Count 242 TH/MM3 Mean Platelet Volume 9.5 FL Neutrophils (%) (Auto) 68.1 % Lymphocytes (%) (Auto) 19.2 % Monocytes (%) (Auto) 8.7 % Eosinophils (%) (Auto) 3.0 % Basophils (%) (Auto) 1.0 % Neutrophils # (Auto) 5.1 TH/MM3 Lymphocytes # (Auto) 1.4 TH/MM3 Monocytes # (Auto) 0.6 TH/MM3 Eosinophils # (Auto) 0.2 TH/MM3 Basophils # (Auto) 0.1 TH/MM3 CBC Comment DIFF FINAL Differential Comment Prothrombin Time 11.7 SEC Prothromb Time International 1.1 RATIO Ratio Activated Partial 30.6 SEC Thromboplast Time Sodium Level 138 MEQ/L Potassium Level 3.9 MEQ/L Chloride Level 105 MEQ/L Carbon Dioxide Level 23.9 MEQ/L Anion Gap 9 MEQ/L Blood Urea Nitrogen 19 MG/DL Creatinine 1.10 MG/DL Estimat Glomerular Filtration 67 ML/MIN Rate Random Glucose 78 MG/DL Calcium Level 9.2 MG/DL Magnesium Level 2.5 MG/DL Total Bilirubin 0.6 MG/DL Aspartate Amino Transf 24 U/L (AST/SGOT) Alanine Aminotransferase 23 U/L (ALT/SGPT) Alkaline Phosphatase 72 U/L Total Creatine Kinase 187 U/L Troponin I LESS THAN 0.02 NG/ML Total Protein 7.2 GM/DL Albumin 3.9 GM/DL [facility] Medical Decision Making Medical Screen Exam Complete: Yes Emergency Medical Condition: Yes Medical Record Reviewed: Yes Interpretation(s) AFLUTTER WITH RVR ON EKG#1, REPEAT AFTER CARDIZEM BOLUS, RATE CONTROLLED TO 70- 90'S BUT STILL IN AFLUTTER,... Differential Diagnosis AFLUTTER, PULM EDEMA Narrative Course PT BEING FOLLOWED CLOSELY AND HAS STARTED CARDIZEM WELL ELIQUIS, TODAY RATE WAS CONTROLLED SUCCESSFULLY BY CARDIZEM BOLUS WILL D/C TO FOLLOW UP WITH DR MURPHY TOMORROW Diagnosis Primary Impression: Atrial flutter with rapid ventricular response Patient Instructions: General Instructions Disposition: 01 DISCHARGE HOME Condition: Stable Sami Blair MD December 27, 2016 17:02
[2016-12-27 17:15] VITALS: PULSE 99; O2SAT 97
[2016-12-27 17:27] VITALS: BP 114/67; PULSE 87; RESP 20; O2SAT 100
[2016-12-27] MEDS ORDERED: DILTIAZEM HCL 50 MG/10 ML VIAL IV PUSH ONE (17:30)
[2016-12-27 17:44] LABS: AUTOMATED NEUTROPHIL # 5.1 TH/MM3 (1.8-7.7); BASOPHIL # 0.1 TH/MM3 (0-0.2); EOSINOPHIL # 0.2 TH/MM3 (0-0.4); HEMATOCRIT 46.1 % (39.0-51.0); HEMO FLAGS DIFF FINAL; LYMPH % 19.2 % (9.0-44.0); LYMPHOCYTE # 1.4 TH/MM3 (1.0-4.8); MEAN CELL VOLUME 79.6 FL (80.0-100.0); MEAN CORPUSCULAR HEMOGLOBIN 26.7 PG (27.0-34.0); MEAN CORPUSCULAR HGB CONC 33.6 % (32.0-36.0); MONO % 8.7 % (0.0-8.0); NEUT % 68.1 % (16.0-70.0); PLATELET COUNT 242 TH/MM3 (150-450); RED BLOOD COUNT 5.79 MIL/MM3 (4.50-5.90); RED CELL DISTRIBUTION WIDTH 14.6 % (11.6-17.2); WHITE BLOOD COUNT 7.4 TH/MM3 (4.0-11.0)
--- NOTE | 2016-12-27 17:52 | RADRPT ---
EXAM DATE/TIME: 12/27/2016 17:33 [facility] COMPARISON: CHEST SINGLE AP, December 21, 2016, 11:39. INDICATIONS : Chest pain. MEDICAL HISTORY : None. SURGICAL HISTORY : None. ENCOUNTER: Initial ACUITY: 1 day PAIN SCORE: 7/10 LOCATION: Bilateral chest FINDINGS: The cardiac silhouette is enlarged in transverse diameter. The lungs are free of acute parenchymal op acity. No effusions are identified. There is paraspinal soft tissue density which may reflect hiatal hernia or other paraspinal mass. There has been no significant change when compared to the prior exam . CONCLUSION: 1. Cardiomegaly. No acute pulmonary disease. Please see above. Jose Oakley MD on December 27, 2016 at 17:50 Board Certified Radiologist. This report was verified electronically.
[2016-12-27 17:53] LABS: ANION GAP 9 MEQ/L (5-15); AST (GOT) 24 U/L (15-37); BICARBONATE 23.9 MEQ/L (21.0-32.0); BLOOD UREA NITROGEN 19 MG/DL (7-18); CHLORIDE 105 MEQ/L (98-107); GLOMERULAR FILTRATION RATE 67 ML/MIN (>89); MAGNESIUM 2.5 MG/DL (1.5-2.5); POTASSIUM 3.9 MEQ/L (3.5-5.1); SODIUM (NA) 138 MEQ/L (136-145)
[2016-12-27 17:56] LABS: APTT (PATIENT) 30.6 SEC (24.3-30.1); INTERNATIONAL NORMALIZED RATIO 1.1 RATIO; PROTHROMBIN TIME - PATIENT 11.7 SEC (9.8-11.6)
[2016-12-27 17:59] LABS: ALKALINE PHOSPHATASE 72 U/L (45-117); ALT (GPT) 23 U/L (12-78); CREATINE KINASE 187 U/L (39-308); TOTAL BILIRUBIN ADULT 0.6 MG/DL (0.2-1.0)
[2016-12-27 18:11] LABS: CKMB 3.1 NG/ML (0.5-3.6)
[2016-12-27 18:23] VITALS: BP 111/68; PULSE 72; RESP 18; O2SAT 98
--- NOTE | 2016-12-28 14:01 | EKG ---
Date Performed: 12/27/2016 Time Performed: 16:53:56 PTAGE: 66 years EKG: ATRIAL FLUTTER/TACHYCARDIA WITH RAPID VENTRICULAR RESPONSE INDETERMINATE AXIS INCOMPLETE RI GHT BUNDLE BRANCH BLOCK MODERATE T-WAVE ABNORMALITY, CONSIDER ANTEROLATERAL ISCHEMIA MODERATE T-WAVE ABNORMALITY, CONSIDER INFERIOR ISCHEMIA Continued clinical correlation recommended ABNORMAL ECG PREVIOUS TRACING : 12/21/2016 11.21 DOCTOR: Toi Berry Interpretating Date/Time 12/28/2016 13:59:41
--- NOTE | 2016-12-28 14:01 | EKG ---
Date Performed: 12/27/2016 Time Performed: 17:19:44 PTAGE: 66 years EKG: ATRIAL FLUTTER/TACHYCARDIA WITH ABERRANT CONDUCTION OR VENTRICULAR PREMATURE COMPLEXES MODE RATE INTRAVENTRICULAR CONDUCTION DELAY MODERATE T-WAVE ABNORMALITY, CONSIDER INFERIOR ISCHEMIA ABNORM AL ECG Compared to the PREVIOUS TRACING ventricular rate has slowed, ventricular ectopy is new PREVIOUS TRACING : 12/27/2016 16.53 DOCTOR: Toi Berry Interpretating Date/Time 12/28/2016 14:00:34
== END 2016-12-27 19:30 | disposition home or self-care (01) ==
LOC: NEPE 16:40
DX: I48.92 Unspecified atrial flutter (principal); R94.31 Abnormal electrocardiogram [ECG] [EKG]; I48.0 Paroxysmal atrial fibrillation; Z79.01 Long term (current) use of anticoagulants
CPT/HCPCS: 71010; 80053; 82550; 82552; 83735; 83880; 84484; 85025; 85610; 85730; 93005; 96374; 96376